=== PATIENT | female | born 1950 | race Caucasian/White ===

== ENCOUNTER 2018-01-28 12:43 | Emergency (ER) | payer BC, OTHER ==
[~2018-01-28] VITALS: Ht 162.6 cm; Wt 68.0 kg
--- NOTE | ~2018-01-28 | HC ---
[facility] [address] CONSULTATION Name: SIMON CRUZ Room #: DEP MCheko#: [id number] Admission: 01/28/18 Attend Phys: Discharge: 01/28/18 Date of : 54 Report #: [id number] THIS REPORT FOR: //name// CC: Bridget You Debbie Braga DATE OF SERVICE: 01/28/2018 HISTORY OF PRESENT ILLNESS: This is a 67-year-old female patient who was seen by me at the request of Emergency Room physician in the Emergency Room. The history is taken from the patient as well as the Emergency Room doctor. The patient was admitted with unstructured symptoms. She indicates that she has a history of ocular migraine. She started seeing things where she was seeing clearly in the middle, but on the periphery, she was not seeing very well. It was followed by mild headache. She also gave some description that she was seeing mirror in her eyes. She also indicated that she was dizzy along with it. The history was not very clear in that regard, but in any event, her symptoms were becoming better. 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 She also apparently has a history of bicuspid aortic wall. 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 She was pretty emotional when I saw her and she was crying repeatedly. I asked her why she is emotional and she indicated she does not know why she is emotional. She is on Wellbutrin, it looks like. I carried out 14-point review of systems. When I saw this patient, she was emotional, but otherwise, has returned back to her baseline. It does not look like she was having any new eye, ENT, cardiac, respiratory, GI, , musculoskeletal, constitutional, dermatological, hematological, psychiatric, throat, allergic symptom associated with present symptomatology. PAST MEDICAL HISTORY: Positive for bicuspid aortic wall. FAMILY HISTORY: Negative for early age stroke. SOCIAL HISTORY: She does not abuse nicotine or alcohol. PHYSICAL EXAMINATION: Has indicated that she was alert and responsive. She was able to follow simple and complex command. Her speech, concentration, fund of knowledge and memory was at her baseline, but she was pretty emotional. Cranial nerve examination 2-12 on my examination was unremarkable. She had symmetrical strength, sensation, reflexes and tone in all 4 extremities. There is no meningeal sign. There is no cerebellar sign. I could not look at the fundus. She was a reasonably well-developed individual who does not have any dysmorphic features of eyes, ears or face. Her vision and hearing looks adequate. There [address] [address] CONSULTATION Name: SIMON CRUZ Room #: DEP Mekhi#: [id number] Admission: 01/28/18 Attend Phys: Discharge: 01/28/18 Date of : 54 Report #: [id number] was no thyroid mass. Pulses were palpable. She has no edema, cyanosis or jaundice. Cardiac examination was unremarkable except the possibility of murmur. No respiratory difficulty or rhonchi was noticed. Blood pressure was 135/76, respirations 14, pulse is 81. LABORATORY DATA: Indicates a normal white count. Sodium was normal. She did have a CT scan of the head, which was unremarkable. IMPRESSION: I have talked to the Emergency Room physician. From description, it looked like the patient had aneurysm of the aorta and then, she had these symptoms of dizziness, visual blurring and the question was whether she had some ischemic event, which may or may not be related to her aneurysm. Because of that, I had recommended an MRI of the brain with MRA of the head and neck and if that was not available, then CT angio of the head and neck by giving her some fluids. It looks like she had a CT angiogram of the head done, which was unremarkable. I had talked to the patient that we need to do the MRI and other workup and address her cardiac issues. I had discussed with her in detail why she needs to stay and what workup we need to do, but from the records, it looks like this patient left against medical advice and she will not be followed. It might be mentioned her blood pressure was high when she came in at 158/98, respirations were 14, pulse was 90 and temperature was 97.9, but that was coming better. Thank you very much for this referral. <ELECTRONICALLY SIGNED> By: Yosvany Holt MD 02/03/18 1355 1708 1708 Yosvany Holt MD /nt
--- NOTE | ~2018-01-28 | EKG ---
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
[2018-01-28 12:50] VITALS: BP 158/98
[2018-01-28 13:31] LABS: ABSOLUTE NEUTROPHILS 5.7 thou/uL (1.4-8.2); BASOPHILS 1.4 % (0.0-2.0); HEMATOCRIT 38.6 % (37.0-47.0); HEMOGLOBIN 13.2 gm/dL (12.0-15.0); LYMPHOCYTES 24.8 % (24.0-44.0); MCHC 34.2 g/dL (28.0-37.0); MCV 87.9 fL (80.0-100.0); MONOCYTES 7.8 % (1.0-8.0); PLATELET COUNT 290 thou/uL (150-400); RDW 12.9 % (10.5-14.5); WBC 8.8 thou/uL (4.0-11.0)
[2018-01-28 13:37] LABS: POC CA IONIZED 4.4 mg/dL (4.5-5.3); POC CREATININE 0.8 mg/dL (0.6-1.3); POC HEMOGLOBIN 12.9 g/dL (12.0-15.0); POC POTASSIUM 3.9 mmol/L (3.5-5.1)
[2018-01-28 13:42] LABS: ANION GAP 6 mmol/L (7-16); BUN 13 mg/dL (7-18); CALCIUM 9.5 mg/dL (8.5-10.1); CHLORIDE 100 mmol/L (98-107); CO2 29 mmol/L (21-32); CREATININE 0.9 mg/dL (0.6-1.0); GLUCOSE 95 mg/dL (74-106); POTASSIUM 3.9 mmol/L (3.5-5.1); SODIUM 135 mmol/L (136-145)
[2018-01-28 13:50] LABS: ALBUMIN 3.9 g/dL (3.4-5.0); LIPASE 105 U/L (73-393); SGOT 22 U/L (15-37); SGPT 34 U/L (30-65); TOTAL BILIRUBIN 0.7 mg/dL (<0.1-1.0); TROPONIN-I < 0.04 ng/mL (<0.06)
[2018-01-28] MEDS ORDERED: BUPROPION XL300 MG PO (13:57)
[2018-01-28] MEDS ORDERED: VITAMIN B-12500 MCG PO (13:58)
[2018-01-28] MEDS ORDERED: SYMBICORT160 MCG/4. INH (13:58)
[2018-01-28] MEDS ORDERED: PROTONIX40 M1 PO (13:58)
[2018-01-28] MEDS ORDERED: CALCIUM 600 +1 EAC1 PO (13:59)
[2018-01-28 15:08] LABS: URINE BILIRUBIN NEGATIVE (Negative); URINE BLOOD NEGATIVE (Negative); URINE CLARITY CLEAR; URINE COLOR YELLOW; URINE GLUCOSE-RANDOM* NEGATIVE (Negative); URINE KETONES 1+ (Negative); URINE LEUKOCYTES TRACE (Negative); URINE NITRITE NEGATIVE (Negative); URINE PROTEIN (DIPSTICK) NEGATIVE (Negative); URINE SPECIFIC GRAVITY <= 1.005 (1.005-1.035); URINE UROBILINOGEN 0.2 E.U./dl (0.2-1.0)
[2018-01-28 15:54] VITALS: BP 135/76
[2018-02-02 07:22] LABS: POC CA IONIZED 4.5 mg/dL (4.5-5.3); POC CREATININE 1.1 mg/dL (0.6-1.3); POC HEMOGLOBIN 17.3 g/dL (12.0-15.0); POC POTASSIUM 4.1 mmol/L (3.5-5.1)
== END 2018-01-28 15:55 | disposition left against medical advice (07) ==
LOC: ER 12:43 → EROBS 15:30 → ER 15:30
PROVIDERS: Physician Assistant
DX: R42 Dizziness and giddiness (principal); R07.89 Other chest pain; H53.9 Unspecified visual disturbance; Z86.79 Personal history of other diseases of the circulatory system